=== PATIENT | male | born 1980 | race Caucasian/White ===

== ENCOUNTER 2017-07-08 09:14 | Emergency (ER) | payer OTHER ==
[2017-07-08] MEDS: CYCLOBENZAPRINE 10 MG TAB PO (09:54)
[2017-07-08] MEDS: KETOROLAC 60 MG/2 ML VIAL (J1885) IM (09:55)
== END 2017-07-08 11:12 | disposition home or self-care (01) ==
LOC: M ED 09:14
DX: S39.012A Strain of muscle, fascia and tendon of lower back, initial encounter (principal); X50.3XXA Overexertion from repetitive movements, initial encounter; Y92.89 Other specified places as the place of occurrence of the external cause; Y93.02 Activity, running; Y99.8 Other external cause status; Z91.041 Radiographic dye allergy status
CPT/HCPCS: J1885